=== PATIENT | female | born 1990 | race Caucasian/White ===

== ENCOUNTER 2025-04-01 23:50 | Emergency (ER) | payer OTHER ==
[~2025-04-01] VITALS: Ht 162.6 cm; Wt 68.0 kg
[2025-04-02] MEDS ORDERED: ASPIRIN 81 MG TAB.CHEW ONE (00:42)
[2025-04-02] MEDS ORDERED: LORAZEPAM INJ 2 MG/ML VIAL ONE (00:42)
[2025-04-02] MEDS: ASPIRIN 81 MG TAB.CHEW PO ONE (00:48)
[2025-04-02] MEDS: LORAZEPAM INJ 2 MG/ML VIAL IV ONE (00:49)
[2025-04-02 01:01] LABS: PLATELET COUNT (AUTO) 320 K/uL (150-450); RED BLOOD CELL COUNT(AUTO) 4.59 MIL/uL (4.0-5.2); RED CELL DISTRIBUTION WIDTH 14.3 % (11.5-15.0); WHITE BLOOD COUNT (AUTO) 8.8 K/uL (4.3-11.0)
[2025-04-02 01:25] LABS: ASPARTATE AMINOTRANSFERASE 40 U/L (15-37); CALCIUM, SERUM 9.5 mg/dL (8.5-10.1); CREATININE 1.1 mg/dL (0.6-1.3); SODIUM SERUM 138 mmol/L (136-145); TOTAL PROTEIN, SERUM 8.4 g/dL (6.4-8.2); UREA NITROGEN, BLOOD 14 mg/dL (7-18)
[2025-04-02] MEDS ORDERED: POTASSIUM CHLORIDE 20 MEQ TAB.PRT.SR PO ONE (01:36)
[2025-04-02] MEDS: POTASSIUM CHLORIDE 20 MEQ TAB.PRT.SR PO ONE (01:52)
[2025-04-02 03:45] VITALS: BP 125/80; TEMP 98.2; O2SAT 97
== END 2025-04-02 03:45 | disposition home or self-care (01) ==
LOC: ER 23:55
DX: F41.9 Anxiety disorder, unspecified (principal); F12.929 Cannabis use, unspecified with intoxication, unspecified; R00.2 Palpitations; R10.2 Pelvic and perineal pain; R00.0 Tachycardia, unspecified; Z60.2 Problems related to living alone
CPT/HCPCS: 99285; 96374; 71045; 93005; 85025; 80048; 80076; 85378; 36415; 84484 ×2; 84702; J2060